=== PATIENT | female | born 1980 | race Caucasian/White ===

== ENCOUNTER 2024-01-18 05:11 | Day surgery (SDC) | payer BC, OTHER ==
[2024-01-17 12:23] VITALS: BMI 20.6
[2024-01-18] MEDS ORDERED: GENTAMICIN SO4 80 MG/2 ML VIAL ONE (14:38)
[2024-01-18] MEDS ORDERED: ACETAMINOPHEN INJECTION 100 ML IVPB ONE (14:38)
[2024-01-18] MEDS ORDERED: IBUPROFEN 600 MG TABLET (FP) PO PRN (14:54)
[2024-01-18] MEDS ORDERED: ONDANSETRON 4 MG/2 ML VIAL IVPUSH PRN (14:54)
[2024-01-18] MEDS ORDERED: oxyCODONE HCL 5 MG TABLET PO PRN (14:54)
[2024-01-18] MEDS ORDERED: IBUPROFEN 800 MG/8 ML IJ IVPB PRN (14:54)
[2024-01-18] MEDS ORDERED: ELECTROLYTE-148 SOLN 1,000 ML IV SCH (15:00)
[2024-01-18] MEDS: SILVER NITRATE 75% APPLIC STCK 1 PKT EACH TP ONE (15:20)
[2024-01-18] MEDS ORDERED: LACTATED RINGERS SOLUTION 1,000 ML IV SCH (15:45)
[2024-01-18 16:30] VITALS: RESP 18
[2024-01-18 17:44] VITALS: BP 116/74; PULSE 83; TEMP 98
== END 2024-01-18 17:40 | disposition home or self-care (01) ==
LOC: JASU-SURG 05:11
PROVIDERS: ATTEND Obstetrics & Gynecology
PROC: 0UB98ZZ Excision of Uterus, Via Natural or Artificial Opening Endoscopic (ICD-10-PCS; principal; 2024-01-18 12:00)
DX: D25.9 Leiomyoma of uterus, unspecified (principal)
CPT/HCPCS: 81025; 88305-TC; 94760; J0131